=== PATIENT | female | born 1970 | race Caucasian/White ===

== ENCOUNTER 2016-09-20 09:00 | Emergency (ER) | payer OTHER ==
[~2016-09-20] VITALS: Ht 157.5 cm; Wt 102.0 kg
[2016-09-20 11:28] VITALS: BP 128/76
== END 2016-09-20 11:32 | disposition home or self-care (01) ==
LOC: ED 09:00
DX: M54.9 Dorsalgia, unspecified (principal)
CPT/HCPCS: 82962

== ENCOUNTER 2017-11-09 10:37 | Emergency (ER) | payer OTHER ==
[~2017-11-09] VITALS: Ht 165.1 cm; Wt 101.2 kg
[2017-11-09 10:45] VITALS: Ht 165.1 cm; Wt 101.2 kg
[2017-11-09 12:15] LABS: CALCIUM 8.7 mg/dL (8.5-10.1); CARBON DIOXIDE 30.9 mmol/L (21-32); CHLORIDE SERUM 111 mmol/L (98-107); CREATININE SERUM 0.6 mg/dL (0.6-1.0); GFR1 > 60 mL/min; GLUCOSE SERUM 85 mg/dL (74-106); POTASSIUM SERUM 4.1 mmol/L (3.5-5.1); SODIUM SERUM 143 mmol/L (136-145)
[2017-11-09 12:17] LABS: BASOPHIL % 0.8 % (0-2); PLATELET COUNT 302 x10^3mcL (130-400)
[2017-11-09 12:20] LABS: ALKALINE PHOSPHATASE 102 U/L (46-116); ALT/SGPT 58 U/L (14-59); AST/SGOT 38 U/L (15-37); BILIRUBIN TOTAL 0.4 mg/dL (0.20-1.00); LIPASE 115 IU/L (73-393); TOTAL PROTEIN, SERUM 7.5 g/dL (6.4-8.2)
[2017-11-09 12:21] LABS: ALBUMIN 3.3 g/dL (3.4-5.0)
[2017-11-09 12:22] LABS: RED CELL DISTRIBUTION WIDTH 17.9 % (11.5-14.5)
[2017-11-09 13:01] LABS: rbc morphology (normal/abnorm) ABNORMAL (NORMAL)
[2017-11-09 13:02] LABS: burr cell (echinocyte) 1+
[2017-11-09 13:44] VITALS: BP 137/89
== END 2017-11-09 13:41 | disposition home or self-care (01) ==
LOC: ED 10:37
PROVIDERS: Emergency Medicine
DX: R10.30 Lower abdominal pain, unspecified (principal); R35.0 Frequency of micturition
CPT/HCPCS: 36415; J1885

== ENCOUNTER 2018-01-02 12:02 | Emergency (ER) | payer OTHER ==
[~2018-01-02] VITALS: Ht 154.9 cm; Wt 102.1 kg
[2018-01-02 12:16] VITALS: Ht 154.9 cm; Wt 102.1 kg
[2018-01-02 15:31] VITALS: BP 161/67
== END 2018-01-02 15:31 | disposition home or self-care (01) ==
LOC: ED 12:02
DX: G43.909 Migraine, unspecified, not intractable, without status migrainosus (principal); R11.10 Vomiting, unspecified
CPT/HCPCS: J1885; Q0162

== ENCOUNTER 2018-08-15 17:13 | Emergency (ER) | payer OTHER ==
[~2018-08-15] VITALS: Ht 154.9 cm; Wt 103.4 kg
[2018-08-15 17:21] VITALS: Ht 154.9 cm; Wt 103.4 kg
[2018-08-15 19:14] VITALS: BP 113/64
== END 2018-08-15 19:15 | disposition home or self-care (01) ==
LOC: ED 17:13
DX: G43.909 Migraine, unspecified, not intractable, without status migrainosus (principal); H60.92 Unspecified otitis externa, left ear
CPT/HCPCS: J1885

== ENCOUNTER 2019-03-11 08:33 | Emergency (ER) | payer OTHER ==
[~2019-03-11] VITALS: Ht 160 cm; Wt 101.6 kg
[2019-03-11 08:55] VITALS: Ht 160 cm; Wt 101.6 kg
[2019-03-11 14:18] VITALS: BP 124/85
== END 2019-03-11 14:18 | disposition home or self-care (01) ==
LOC: ED 08:33
DX: M79.10 Myalgia, unspecified site (principal); M79.672 Pain in left foot; M79.671 Pain in right foot; G43.909 Migraine, unspecified, not intractable, without status migrainosus
CPT/HCPCS: J1885; Q0092